=== PATIENT | female | born 1930 | race Caucasian/White ===

== ENCOUNTER 2017-04-17 13:02 | Inpatient (IN) | payer MEDICARE ==
[~2017-04-17] VITALS: Ht 152.4 cm; Wt 59.1 kg
[~2017-04-17 13:02] MED LIST: ADVAIR HFA 230/1 AER IH; AMLODIPINE5 MG PO; ATOXIMETIN-B1 CAP PO; CARDIZEM CD180 MG PO; CIPRO250 MG PO; COLACE100 MG PO; COUMADIN2 MG PO; DILTIAZEM HCL30 MG PO; Duoneb 3ML 3 MG/3 ML INH; K-TAB10 MEQ PO; LASIX20 MG PO; LISINOPRIL10 MG PO; NATURE'S BLEND400 I1 PO; NIACIN1 TAB PO; OXYCODONE5 MG PO; PEPCID20 MG PO; PERCOCET 325 MG1 TA2 PO; POTASSIUM1 PDS PO; VITAMIN D3400 IU PO; ZOLPIDEM TARTRAT5 MG PO
[2017-04-17 13:25] VITALS: BP 128/82
[2017-04-17] MEDS ORDERED: DILTIAZEM HCL180 MG PO (13:26)
[2017-04-17] MEDS ORDERED: LEVOTHYROXIN0.025 M1 PO (13:26)
[2017-04-17] MEDS ORDERED: DICLOFENAC SOD75 MG PO (13:27)
[2017-04-17 14:09] LABS: BASO # 0.1 10*3/uL (0.0-0.1); BASO % 0.9 % (0.0-1.0); EOS # 0.6 10*3/uL (0.0-0.4); EOS % 8.4 % (1.0-4.0); HEMOGLOBIN 11.5 g/dl (12.0-16.0); LYMPH # 2.1 10*3/uL (1.3-4.4); LYMPH % 27.8 % (27.0-41.0); MEAN CELL VOLUME 90.7 fl (81.0-99.0); MEAN CORPUSCULAR HGB CONC 31.9 g/dl (33.0-37.0); MEAN PLATELET VOLUME 9.5 fl (9.6-12.3); MONO # 0.8 10*3/uL (0.1-1.0); MONO % 9.8 % (3.0-9.0); NEUT % 52.7 % (47.0-73.0); PLATELET COUNT AUTOMATED 368 10*3/uL (130-400); RED BLOOD COUNT 3.97 10*6/uL (4.10-5.10); RED CELL DISTRI WIDTH 13.1 % (0-14.5); WHITE BLOOD COUNT 7.7 10*3/uL (4.8-10.8)
[2017-04-17 14:17] LABS: INTERNATIONAL NORM RATIO 0.9 (2.0-3.5); PROTHROMBIN TIME 9.8 SECONDS (9.0-12.4)
[2017-04-17 14:24] LABS: ALBUMIN 3.3 gm/dl (3.1-4.5); ALKALINE PHOSPHATASE 97 U/L (45-117); BILIRUBIN, TOTAL 0.5 mg/dl (0.2-1.0); BUN 21 mg/dl (7-24); CARBON DIOXIDE 27 mmol/L (21-32); CHLORIDE 103 mmol/L (98-107); CPK 23 U/L (26-192); EST GLOM FILT AFRICAN AMERICAN 47 ml/min; GLUCOSE 93 mg/dL (65-99); MAGNESIUM 2.9 mg/dL (1.5-2.1); POTASSIUM 4.5 mmol/L (3.5-5.1); SGOT/AST 16 IU/L (3-35); SGPT/ALT 13 U/L (12-78); SODIUM 138 mmol/L (136-145); TOTAL PROTEIN 7.6 gm/dL (6.4-8.2)
[2017-04-17 14:26] LABS: CKMB < 0.5 ng/ml (0.5-3.6); TROPONIN I < 0.015 ng/ml (<0.045)
[2017-04-17 14:27] LABS: C-REACTIVE PROTEIN 2.64 MG/DL (0-0.3)
[2017-04-17 14:32] VITALS: BP 124/84
[2017-04-17 15:23] VITALS: BP 120/82
[2017-04-17 16:12] VITALS: BP 152/48
[2017-04-17 20:00] VITALS: BP 123/58
[2017-04-18] VITALS: BP 120/62
[2017-04-18 04:00] VITALS: BP 124/68
[2017-04-18 08:00] VITALS: BP 146/76
[2017-04-18 12:00] VITALS: BP 124/68
[2017-04-18 16:00] VITALS: BP 111/67
[2017-04-18 20:00] VITALS: BP 107/75
[2017-04-19] VITALS: BP 130/79
[2017-04-19 08:00] VITALS: BP 138/64
[2017-04-19 12:00] VITALS: BP 100/62
[2017-04-19 16:00] VITALS: BP 98/71
[2017-04-19 20:00] VITALS: BP 102/51
[2017-04-20] VITALS: BP 138/78
[2017-04-20 06:03] LABS: POTASSIUM 4.4 mmol/L (3.5-5.1)
[2017-04-20 06:12] LABS: BASO % 0.1 % (0.0-1.0); HEMATOCRIT 31.8 % (37.0-47.0); HEMOGLOBIN 10.2 g/dl (12.0-16.0); IG # 0.1 10*3/uL (0.0-0.1); LYMPH # 1.5 10*3/uL (1.3-4.4); LYMPH % 11.7 % (27.0-41.0); MEAN CELL VOLUME 89.8 fl (81.0-99.0); MEAN CORPUSCULAR HGB 28.8 pg (27.0-31.0); MEAN CORPUSCULAR HGB CONC 32.1 g/dl (33.0-37.0); MONO # 0.5 10*3/uL (0.1-1.0); MONO % 4.3 % (3.0-9.0); NEUT # 10.4 10*3/uL (2.3-7.9); NEUT % 83.3 % (47.0-73.0); PLATELET COUNT AUTOMATED 343 10*3/uL (130-400); RED BLOOD COUNT 3.54 10*6/uL (4.10-5.10); RED CELL DISTRI WIDTH 13.2 % (0-14.5); WHITE BLOOD COUNT 12.5 10*3/uL (4.8-10.8)
[2017-04-20] MEDS ORDERED: DOXYCYCLINE100 M3 PO (06:55)
[2017-04-20] MEDS ORDERED: LIDOVEX60 GM T (06:55)
[2017-04-20] MEDS ORDERED: PREDNISONE5 MG PO (06:56)
[2017-04-20 08:00] VITALS: BP 136/74
== END 2017-04-20 10:15 | disposition home or self-care (01) | DRG 195 ==
LOC: ED 13:02 → EDHOLD 15:10 → 4E 15:18
PROVIDERS: Emergency Medicine; Internal Medicine
DX: J18.9 Pneumonia, unspecified organism (principal); R07.81 Pleurodynia; Z88.0 Allergy status to penicillin

== ENCOUNTER 2017-06-20 11:45 | Inpatient (IN) | payer MEDICARE, OTHER ==
[~2017-06-20] VITALS: Ht 149.8 cm; Wt 53.2 kg
--- NOTE | ~2017-06-20 | PR ---
[place], [place] [id number] #: [id number] ROOM: 532 DOCTOR: RAJESH TURNER MD BIRTHDATE: [birth year] DOS: SUBJECTIVE: The patient states that she feels better. She is not having any cough or shortness of breath. Oxygen saturation has improved after the antibiotics were started. OBJECTIVE: VITAL SIGNS: Graphic trend shows pressure 110/81, pulse of 90, respirations 20, temperature 98.2. LUNGS: Diminished breath sounds. No wheezes, rales or rhonchi heard this morning. HEART: Regular. ABDOMEN: Obese, soft. EXTREMITIES: Without any edema. ASSESSMENT AND PLAN: 1. Abdominal pain with weight loss and iron deficiency anemia. Awaiting endoscopy, colonoscopy this morning. 2. Wedge fractures of multiple lumbar vertebrae with chronic pain controlled with oxycodone. 3. Postmenopausal osteoporosis, add Fosamax. 4. Acute hypoxic respiratory failure with CT of the chest showing emphysematous changes as well as right upper lobe and basilar opacity suggesting early pneumonia. The patient was placed in antibiotics. We will also add DuoNeb. RAJESH TURNER MD CM:PNTRANS [id number] RAJESH TURNER MD 06/23/17 0018 interface
--- NOTE | ~2017-06-20 | PR ---
[place], [place] PROGRESS NOTE NAME: MARIE DICK [facility] #: [id number] UNIT #: [id number] ROOM: 532 DOCTOR: RAJESH TURNER MD BIRTHDATE: [birth year] DOS: SUBJECTIVE: The patient states that she is starting to feel a little better, does not have any new complaints. OBJECTIVE: VITAL SIGNS: Blood pressure is 120/57, pulse of 82, respirations 18, temperature 98.4. LUNGS: Clear. HEART: Regular. ABDOMEN: Obese, soft, nontender. EXTREMITIES: Without any edema. Status post endoscopy. ASSESSMENT AND PLAN: 1. Large duodenal ulcer noticed on endoscopy yesterday. The patient is on proton pump inhibitors and Carafate. 2. Iron-deficiency anemia, on supplements. 3. Wedge fractures, multiple lumbar vertebrae with postmenopausal osteoporosis. Medications have been started. 4. Hypoxic respiratory failure, acute, with chronic obstructive pulmonary disease and pneumonia, on IV antibiotics. The WBC count is normal, hemoglobin is 6.9. We will transfuse and start her on parenteral iron supplements in addition to the p.o. RAJESH TURNER MD CM:PNTRANS 0746 RAJESH TURNER MD 06/24/1741 interface
--- NOTE | ~2017-06-20 | CON ---
[place], [place] REPORT OF CONSULTATION NAME: MARIE DICK UNIT #: [id number] ROOM: 532 DOCTOR: NEPTALI LILLY MD BIRTHDATE: [birth year] DOS: HISTORY OF PRESENT ILLNESS: An 87-year-old patient who has presented with abdominal pain, was found to have a giant duodenal ulcer and severe diverticulosis. This is endoscopic findings. The patient had to be receiving 2 units of packed cells. H and H improved to 10 and 34 today. Basic metabolic panel has been unremarkable. PAST MEDICAL HISTORY: Atrial fibrillation, hemorrhoid, diverticulosis, osteoporosis. PAST SURGICAL HISTORY: Left hip. SOCIAL HISTORY: Nonsmoker, nonalcohol consumer. REVIEW OF SYSTEMS: No hematemesis. No hematochezia. Actually, she has had multiple bowel movements today, yellow in color. No shortness of breath. No chest pain. However, still continues subxiphoid distress. PHYSICAL EXAMINATION: VITAL SIGNS: Stable. HEENT: Benign. NECK: Supple. No thyromegaly. CHEST: Symmetric anatomy, equal expansion. HEART: Normal sinus rhythm. No gallop. No murmur. ABDOMEN: Soft. No hepato-organomegaly. Bowel sounds present. EXTREMITIES: No cyanosis. No pedal edema. NEUROLOGIC: Alert and oriented. IMPRESSION AND PLAN: Severe diverticulosis, giant duodenal ulcer. We are going to continue with double dose Protonix 40 mg IV b.i.d. We are going to continue with sucralfate therapy, slurry 2 grams q. 6 hours. She is demanding solid food and she wants to pick and choose from her diet. However, we will remain aggressive double dose therapy for next month and after that we are going to then reduce to 1 Protonix 40 mg daily and Carafate q.i.d. The cause of her problem associated with diclofenac and we are going to avoid above. OTHER ADJUNCTIVE DIAGNOSES: As dictated. [place], [place] REPORT OF CONSULTATION NAME: MRAIE DICK UNIT #: [id number] ROOM: 532 DOCTOR: NEPTALI LILLY MD BIRTHDATE: [birth year] NEPTALI LILLY MD CM:CONSTR:REPORT OF CONSULTATION 1605 06/25/17 2303 interface
--- NOTE | ~2017-06-20 | PR ---
[place], [place] PROGRESS NOTE NAME: MARIE DICK [facility] #: [id number] UNIT #: [id number] ROOM: 532 DOCTOR: RAJESH TURNER MD BIRTHDATE: [birth year] DOS: SUBJECTIVE: The patient states that she had quite a lot of diarrhea yesterday, but she does not have any abdominal pain. OBJECTIVE: VITAL SIGNS: Blood pressure is 106/56, pulse of 90, respirations 18, temperature 98.3. LUNGS: Clear. HEART: Regular. ABDOMEN: Soft, some minimal tenderness in the epigastric region. EXTREMITIES: Without any edema. LABORATORY DATA: WBC count is 6.6, hemoglobin 10.7, hematocrit 33.5, platelets 393. BMP: Glucose 112, BUN 2, creatinine 0.77. Sodium 141, potassium 2.7, chloride 105, bicarbonate 25. ASSESSMENT AND PLAN: 1. Large duodenal ulcer without any active bleed. We will start her on a regular diet today, but advised the patient not take anything fried or spicy, stick to a bland diet. 2. Precipitous drop in hematocrit. The patient was transfused iron supplements IV and p.o. has already been ordered for underlying iron deficiency anemia. 3. Pneumonia, possible Gram-negative on IV antibiotics. 4. Adult failure to thrive. Get PT/OT to see her and hopefully discharge by Sunday. 5. Postmenopausal osteoporosis with multiple lumbar wedge fracture, continue pain management. RAJESH TURNER MD CM:PNTRANS 0 [phone] RAJESH TURNER MD 06/25/17 0229 interface
--- NOTE | ~2017-06-20 | O ---
[place], [place] OPERATIVE NOTE NAME: MARIE DICK UNIT #: [id number] ROOM: 532 DOCTOR: MAXX ROSANEPTALI BIRTHDATE: [birth year] DOS: GASTROENDOSCOPIC REPORT. The patient is an 87-year-old who has presented with nausea, vomiting and not feeling well. The patient had a panel of blood work done. She was found to have microcytic indices of anemia with H and H of 8 and 24. Basic metabolic panel was normal. CT scan of the abdomen and pelvis did not show any acute inflammatory process, uncomplicated diverticulosis has been noticed, 3.4 cm abdominal aortic aneurysm was noticed. Hepatic panel was within normal limits. Lipase 100 within normal limits. PAST MEDICAL HISTORY: Associated with osteoporosis, abdominal pain, atrial fibrillation , hip fracture, hypertension. Also associated with back pain, hypothyroidism, spinal compression. PAST SURGICAL HISTORY: Hip fracture. SOCIAL HISTORY: Nonsmoker, nonalcohol consumer. FAMILY HISTORY: Noncontributory. ALLERGIES: PENICILLIN. PROCEDURE: Today's procedure part of investigation is panendoscopy plus biopsy and colonoscopy. PREMEDICATION: Versed and Diprivan. SCOPE: Olympus forward-viewing gastroscope Q10 video. REPORT: After putting the patient in the left lateral position and after application of lubricant to the scope, the scope was introduced. Thereafter, under direct visualization, I advanced through the length of esophagus without difficulty. Gastric pouch was entered. Gastritis seen. A giant duodenal ulcer was identified. The base of which is scarred and not actively bleeding. Distant margin of the ulcer was biopsied. Antrum was biopsied. The patient extubated, tolerated procedure well. IMPRESSION: Giant duodenal ulcer. PLAN AND DISCUSSION: We are going to treat the patient with Protonix IV 40 mg b.i.d. We are going to start her on sucralfate, Carafate 2 grams 2 hours before meals and at bedtime intermittently. We are going to give her Gaviscon 15 mL every 3 hours, alternating with Carafate and full liquid diet and clinical reassessment. Meanwhile, we are going to proceed with colonoscopy to rule out occult malignancy of colon. [place], [place] OPERATIVE NOTE NAME: MARIE DICK UNIT #: [id number] ROOM: [facility] DOCTOR: NEPTALI LILLY MD BIRTHDATE: [birth year] NEPTALI LILLY MD CM:OPRECORD:OPERATIVE NOTE [phone] NEPTALI LILLY MD 06/22/17 1443 interface
--- NOTE | ~2017-06-20 | PR ---
[place], [place] PROGRESS NOTE NAME: MARIE DICK [facility] #: [id number] UNIT #: [id number] ROOM: 532 DOCTOR: RAJESH TURNER MD BIRTHDATE: [birth year] DOS: 06/25/2017 SUBJECTIVE: The patient states that she is tired, does not have any new complaints. OBJECTIVE: VITAL SIGNS: Blood pressure is 137/69, pulse of 77, respirations 20, temperature 98.7. LUNGS: Clear. HEART: Regular. ABDOMEN: Obese, soft, nontender. EXTREMITIES: Without any edema. LABORATORY DATA: White cell count is normal, hemoglobin 10.3, platelets 367. BMP: Glucose 87, BUN and creatinine normal. Potassium is up to 3.2. ASSESSMENT AND PLAN: 1. Hypokalemia. Supplementation will be ordered again. 2. Precipitous drop in hematocrit with iron deficiency anemia, which is corrected. 3. Weight loss with a large duodenal ulcer. The patient has been started on a diet and is tolerating and has not had any active bleed. 4. Pneumonia, possible Gram negative. Chest x-ray will be ordered to see if clearing and plan is to discharge in a.m. RAJESH TURNER MD CM:PNTRANS 1 0923 RAJESH TURNER MD 06/26/17 0515 interface
--- NOTE | ~2017-06-20 | PR ---
[place], [place] PROGRESS NOTE NAME: MARIE DICK [facility] #: [id number] UNIT #: [id number] ROOM: 532 DOCTOR: RAJESH TURNER MD BIRTHDATE: [birth year] DOS: 06/26/2017 SUBJECTIVE: The patient is doing better, does not have any complaints. Denies any chest pains, palpitations or shortness of breath. She thinks she may have slight burning when she urinates. She has had 3 bowel movements yesterday. OBJECTIVE: VITAL SIGNS: Graphic trend this morning shows a pressure of 136/72, pulse is 76, respirations 20, temperature 98.6. LUNGS: Clear. HEART: Regular. ABDOMEN: Obese, soft, nontender. EXTREMITIES: Without any edema. LABORATORY DATA: No labs available this morning. , it was negative. Chest x-ray shows atelectasis with basilar process for which she is already on antibiotics. Incidentally to be noted is that knee x-ray on admission was negative. The pneumonia was actually seen on a CT of the chest. ASSESSMENT AND PLAN: 1. Pneumonia, right upper lobe as well as basilar, possible gram-negative, improving. 2. Chronic obstructive pulmonary disease with acute hypoxic respiratory failure, hypoxemia is corrected. The patient does not have any exacerbations. 3. Precipitous drop in hematocrit, corrected. 4. Benign hypertension, controlled. 5. Duodenal ulcer, on medications. Plan is to discharge her to home today to follow up as an outpatient. RAJESH TURNER MD CM:PNTRANS 4 8 RAJESH TURNER MD 06/26/17918 interface
--- NOTE | ~2017-06-20 | DS ---
[place], [place] DISCHARGE SUMMARY NAME: MARIE DICK [facility] #: [id number] UNIT #: [id number] ROOM: 532 DOCTOR: RAJESH TURNER MD BIRTHDATE: [birth year] DOS: 06/26/2017 DIAGNOSES: 1. Large duodenal ulcer. 2. Precipitous drop in hematocrit. 3. Bilateral pneumonia, possible gram negative. 4. Acute hypoxic respiratory failure. 5. Benign hypertension. 6. Postmenopausal osteoporosis. 7. Chronic low back pain with multiple wedge fractures of the lumbar vertebrae. DISCHARGE MEDICATIONS: Iron 150 daily, oxycodone 5 three times a day p.r.n., Cipro 500 mg twice a day for 7 days, Protonix 40 daily, Carafate 1 gram q.i.d., Zofran 8 mg twice a day, levothyroxine 0.025 mg daily, diltiazem 180 daily. This patient avoids nonsteroidals. HOSPITAL COURSE: This patient is 87 years old. She comes in with complaints of eating poorly, significant weight loss, abdominal pain, nausea and emesis. Please refer to H and P for details. After admission, the patient was placed on IV fluids, IV Protonix. Dr. Romero was consulted for an endoscopy. The patient was noted to have hypoxemia, oxygen saturation in the low 80s. CT of the chest showed bilateral pneumonia. IV antibiotics were added along with breathing treatments which was later changed to incentive spirometry. The patient underwent the endoscopy and was noted to have a large duodenal ulcer. Her count later dropped to 6.5 and required 2 units of blood transfusion. She was also noted to be iron deficient and was started on both paracentral and p.o. iron supplements. The patient's count has come up and it stabilized around 10.4. The patient is not having any new complaints, back pain is controlled with oxycodone. She is advised not to take any nonsteroidals. I did start her on Fosamax again for osteoporosis, but knowing that she has a large duodenal ulcer, I would avoid any medicines which can cause further irritation, so Fosamax has been stopped for right now. I will start it at a later date once the ulcer completely heals. The patient will have visiting nurses, PT, OT at home. DISCHARGE MEDICATIONS: As above. DIET: As tolerated. [place], [place] DISCHARGE SUMMARY NAME: MARIE DICK UNIT #: [id number] ROOM: [facility] DOCTOR: RAJESH TURNER MD BIRTHDATE: [birth year] RAJESH TURNER MD CM:CAMILO 0818 [id number] RAJESH TURNER MD 06/26/17 1653 interface
--- NOTE | ~2017-06-20 | WRIGHTHP ---
[place], [place] PATIENT HISTORY AND PHYSICAL EXAM NAME: MARIE DICK [facility] #: [id number] UNIT #: [id number] ROOM: 532 DOCTOR: RAJESH TURNER MD BIRTHDATE: [birth year] DOS: 06/20/2017 HISTORY OF PRESENT ILLNESS: The patient is 87 years old who was admitted with complaints of difficulty with weight loss and nausea and emesis. The patient has had a history of vertebral fractures, was on pain medications at home, but continued to worsen, was seen by ____ as an outpatient, was placed on Cymbalta for chronic pain. This as per the patient and the family made her increasingly nauseous. She has been throwing up for the last several days and so quit taking her Cymbalta is impart. She has also lost about 30 pounds in the last 1 month. Denies having any chest pains or palpitations. Complains of a bloating feeling in abdomen and continued abdominal discomfort and does not have any diarrhea, any fever or chills. Does not have any chest pains or palpitations. PAST MEDICAL HISTORY: Significant for: 1. Multiple compression fractures of the lumbar spine. 2. Postmenopausal osteoporosis. 3. History of diverticular bleed. 4. Benign hypertension. 5. History of lone atrial fibrillation. 6. History of hip fracture with repair. MEDICATIONS: She is on Cardizem, diclofenac, duloxetine and levothyroxine. SOCIAL HISTORY: Nonsmoker, does not use any alcohol. PHYSICAL EXAMINATION: GENERAL: She is awake and alert and oriented. VITAL SIGNS: Graphic trend shows pressure 131/60, pulse of 79, respirations 18 and temperature 98.8. LUNGS: Diminished breath sounds. No wheezes, rales or rhonchi heard this morning. HEART: Regular. ABDOMEN: Obese, soft, some diffuse tenderness all across the abdomen. EXTREMITIES: Without any edema. LABORATORY DATA: Shows a normal white blood cell count, but hemoglobin is 8.4, hematocrit 28.3, platelet 501. BMP: Glucose 102. Electrolytes were normal. ASSESSMENT AND PLAN: 1. The patient with significant weight loss, nausea and emesis, most likely has acute gastritis. The patient will be placed on IV Protonix, IV fluids. Consultation with Dr. Romero has been obtained. CT of the abdomen and pelvis was ordered. 2. Benign hypertension, controlled. 3. Chronic back pain, not any better. We will discontinue the Cymbalta, which was causing a lot of nausea and emesis and also place on oxycodone for pain control. 4. Hypothyroidism. Continue medications. 5. Hypoxic respiratory failure, acute. This morning the patient's oxygen [place], [place] PATIENT HISTORY AND PHYSICAL EXAM NAME: MARIE DICK UNIT #: [id number] ROOM: [facility] DOCTOR: RAJESH TURNER MD BIRTHDATE: [birth year] saturation is down to 86 on room air. We will restart oxygen supplementation, order chest CT scan. RAJESH TURNER MD CM:HISPHYS:PATIENT HISTORY AND PHYSICAL EXAMINATION 0 RAJESH TURNER MD 06/21/1741 interface
--- NOTE | ~2017-06-20 | O ---
[place], [place] OPERATIVE NOTE [id number] UNIT #: [id number] ROOM: 532 DOCTOR: NEPTALI LILLY MD BIRTHDATE: [birth year] DOS: GASTROENDOSCOPIC REPORT. The patient has presented with chief complaint of anemia, drop in H and H, undergoing investigation. PROCEDURE: Today's procedure part of investigation is colonoscopy. PREMEDICATION: Versed and Diprivan. SCOPE: Olympus folding colonoscope 10L video. REPORT: After putting the patient in the left lateral position and after application of lubricant to the scope, the scope was introduced. Thereafter, under direct visualization, I advanced through the length of colon without difficulty. Severe diverticulosis of sigmoid colon was identified, photographed. Base of the cecum explored, appendiceal orifice identified, and ileocecal valve was defined. The patient was gradually extubated, tolerated procedure well. IMPRESSION: Severe diverticulosis of sigmoid colon and descending colon. PLAN AND DISCUSSION: Full liquid diet for the concerns of giant duodenal ulcer, workup in progress. Follow up H and H tomorrow, next day and should there will be a further drop in H and H, we are going to consider transfusion of packed cell, 1 unit and reassessment. NEPTALI LILLY MD CM:OPRECORD:OPERATIVE NOTE [phone] NEPTALI LILLY MD 06/22/17 1443 interface
[~2017-06-20 11:45] MED LIST changes: +DICLOFENAC SOD75 MG PO; +DILTIAZEM HCL180 MG PO; +DOXYCYCLINE100 M3 PO; +LEVOTHYROXIN0.025 M1 PO; +LIDOVEX60 GM T; +PREDNISONE5 MG PO
[2017-06-20 12:00] VITALS: BP 125/63
--- NOTE | 2017-06-20 12:05 | NUR ---
Time: 1204 A 87 year old FEMALE admitted to under services of RAJESH MARSH MD. Pt. arrived via bed from [place]. Chief complaint: NAUSEA, VOMITING, ABD PAIN. SHANTELL RODRIGEZ
[2017-06-20] MEDS ORDERED: CYMBALTA20 M1 PO (13:05)
[2017-06-20 15:06] LABS: BASO # 0.1 10*3/uL (0.0-0.1); BASO % 0.6 % (0.0-1.0); EOS # 0.1 10*3/uL (0.0-0.4); EOS % 0.9 % (1.0-4.0); HEMATOCRIT 28.3 % (37.0-47.0); HEMOGLOBIN 8.4 g/dl (12.0-16.0); LYMPH # 2.1 10*3/uL (1.3-4.4); LYMPH % 25.8 % (27.0-41.0); MEAN CELL VOLUME 82.7 fl (81.0-99.0); MEAN CORPUSCULAR HGB 24.6 pg (27.0-31.0); MEAN CORPUSCULAR HGB CONC 29.7 g/dl (33.0-37.0); MEAN PLATELET VOLUME 8.8 fl (9.6-12.3); MONO # 0.6 10*3/uL (0.1-1.0); MONO % 7.7 % (3.0-9.0); NEUT # 5.1 10*3/uL (2.3-7.9); NEUT % 64.5 % (47.0-73.0); PLATELET COUNT AUTOMATED 501 10*3/uL (130-400); RED BLOOD COUNT 3.42 10*6/uL (4.10-5.10); RED CELL DISTRI WIDTH 16.1 % (0-14.5)
[2017-06-20 15:14] LABS: BUN 13 mg/dl (7-24); CHLORIDE 100 mmol/L (98-107); CREATININE 0.84 mg/dL (0.55-1.02); POTASSIUM 3.6 mmol/L (3.5-5.1); SODIUM 137 mmol/L (136-145)
[2017-06-20 16:00] VITALS: BP 136/71
[2017-06-20 20:21] VITALS: BP 141/64
--- NOTE | 2017-06-20 20:36 | NUR ---
PRN ROXICODONE GIVEN FOR C/O HEADACHE RATED 6/10. WILL MONITOR
--- NOTE | 2017-06-20 21:15 | NUR ---
ROXICODONE EFFECTIVE, PATIENT ASLEEP WITH RESPIRATIONS >12
[2017-06-21] VITALS: BP 131/60
--- NOTE | 2017-06-21 07:30 | NUR ---
ASSUMED CARE OF PT AT THIS TIME, PT RESTING IN BED WITH BIPAP ON, WILL MONITOR
[2017-06-21 08:00] VITALS: BP 117/48
--- NOTE | 2017-06-21 08:00 | NUR ---
CALL PLACED TO FOR CONSULT, DR. LILLY STATED HE WAS IN THE MIDDLE OF A PROCEDURE AND WOULD CALL BACK
--- NOTE | 2017-06-21 08:54 | NUR ---
Sqe in to talk to patient. Patient states lives at [address] with HER DAUGHTER. There are 0 steps in the home. Physician: DR TURNER Pharmacy: [facility] Home health services: NONE Patient's level of ADLs: MINIMAL ASSIST Patient has working utilities: YES DME: HOSP BED/WC/[facility] Follow-up physician's appointment after d/c: PREFERS TO MAKE HER OAN APPT Does patient want to access PORTAL?: Discharge plan HOME. RADHA BERRY
[2017-06-21 09:07] LABS: ALBUMIN 2.6 gm/dl (3.1-4.5); BILIRUBIN, DIRECT 0.1 mg/dL (0.0-0.2); TOTAL PROTEIN 6.6 gm/dL (6.4-8.2)
[2017-06-21 10:04] LABS: FERRITIN 25.5 ng/mL (10.0-291.0)
--- NOTE | 2017-06-21 15:34 | NUR ---
PT C/O H/A, RATES PAIN 8/10, REQUESTED PRN PAIN MEDICATION, ADMINSITERED ROXICET PO PRN PER ORDERS, WILL MONITOR EFFECTS
[2017-06-21 16:00] VITALS: BP 120/54
--- NOTE | 2017-06-21 16:56 | NUR ---
PT NO FURTHER REPORTS C/O H/A, ROXICODNE EFFECTIVE AT THIS TIME.
[2017-06-21 20:00] VITALS: BP 134/56
[2017-06-22] VITALS (8 sets, daily range): BP systolic 110–153; BP diastolic 53–81
--- NOTE | 2017-06-22 04:38 | NUR ---
[facility] REFER TO PAPER MAR AND WRITTEN PROGRESS NOTES.
--- NOTE | 2017-06-22 22:20 | NUR ---
C/O BACK PAIN RATING A 5, MEDICATED WITH ROXICODONE PER PRN ORDER. CALL LIGHT WITHIN REACH. WILL MONITOR FOR EFFECTIVENESS
--- NOTE | 2017-06-22 23:00 | NUR ---
RESTING IN BED WITH NO DISTRESS NOTED. RESPIRATIONS EASY. LUNGS DIMINISHED WITH I&E WHEEZES. PULSE OX 90% RA, O2 PRESENT AT BEDSIDE BUT PATIENT REFUSING TO USE D/T "I DON'T WANT TO BE DEPENDENT ON IT". TRACE BLE EDEMA NOTED. IV FLUIDS INFUSING PER ORDER. CALL LIGHT WITHIN REACH.
[2017-06-23] VITALS (19 sets, daily range): BP systolic 119–142; BP diastolic 50–80
--- NOTE | 2017-06-23 | NUR ---
MEDS APPEAR EFFECTIVE. SLEEPING. RESPIRATIONS EASY. VSS. CALL LIGHT WITHIN REACH
--- NOTE | 2017-06-23 06:00 | NUR ---
SLEPT THROUGHOUT NIGHT WITH NO DISTRESS NOTED. IV FLUIDS MAINTAINED. CALL LIGHT WITHIN REACH
[2017-06-23 07:01] LABS: BASO % 0.7 % (0.0-1.0); EOS # 0.4 10*3/uL (0.0-0.4); EOS % 6.3 % (1.0-4.0); HEMATOCRIT 24.1 % (37.0-47.0); HEMOGLOBIN 6.9 g/dl (12.0-16.0); LYMPH # 1.7 10*3/uL (1.3-4.4); LYMPH % 30.9 % (27.0-41.0); MEAN CORPUSCULAR HGB CONC 28.6 g/dl (33.0-37.0); MEAN PLATELET VOLUME 8.9 fl (9.6-12.3); MONO # 0.6 10*3/uL (0.1-1.0); MONO % 10.3 % (3.0-9.0); NEUT # 2.8 10*3/uL (2.3-7.9); NEUT % 51.4 % (47.0-73.0); PLATELET COUNT AUTOMATED 418 10*3/uL (130-400); RED BLOOD COUNT 2.87 10*6/uL (4.10-5.10); RED CELL DISTRI WIDTH 15.7 % (0-14.5); WHITE BLOOD COUNT 5.5 10*3/uL (4.8-10.8)
--- NOTE | 2017-06-23 09:38 | NUR ---
PT RESTING IN BED, NO DISTRESS NOTED, DAUGHTER AT BEDSIDE. SHAYNE MONITOR
--- NOTE | 2017-06-23 11:06 | NUR ---
IV started right hand with #22 angiocath after 1 attempts. The IV site was prepped with Chloraprep. Heparin lock attached. Sterile dressing applied. Patient tolerated precedure well. Procedure performed according to [facility] policy & procedure. BONILLA ARANA
--- NOTE | 2017-06-23 16:02 | NUR ---
PT REQUESTED AND GIVEN OXY IR FOR C/O BACK PAIN. PT RATES PAIN 6/10. FAMILY AT BEDSIDE
--- NOTE | 2017-06-23 17:16 | NUR ---
PT STATES THAT OXY IR HELPED RELIEVE SOME BACK PAIN. WILL MONITOR
[2017-06-24] VITALS: BP 106/56
[2017-06-24 06:39] LABS: BASO # 0.1 10*3/uL (0.0-0.1); BASO % 0.9 % (0.0-1.0); EOS # 0.5 10*3/uL (0.0-0.4); EOS % 8.1 % (1.0-4.0); LYMPH % 30.4 % (27.0-41.0); MEAN CELL VOLUME 82.3 fl (81.0-99.0); MEAN CORPUSCULAR HGB 26.3 pg (27.0-31.0); MEAN CORPUSCULAR HGB CONC 31.9 g/dl (33.0-37.0); MEAN PLATELET VOLUME 8.9 fl (9.6-12.3); MONO # 0.7 10*3/uL (0.1-1.0); MONO % 10.7 % (3.0-9.0); NEUT # 3.3 10*3/uL (2.3-7.9); NEUT % 49.4 % (47.0-73.0); PLATELET COUNT AUTOMATED 393 10*3/uL (130-400); RED BLOOD COUNT 4.07 10*6/uL (4.10-5.10); RED CELL DISTRI WIDTH 15.6 % (0-14.5); WHITE BLOOD COUNT 6.6 10*3/uL (4.8-10.8)
[2017-06-24 06:42] LABS: HEMATOCRIT 33.5 % (37.0-47.0); HEMOGLOBIN 10.7 g/dl (12.0-16.0)
[2017-06-24 07:02] LABS: BUN 2 mg/dl (7-24); CHLORIDE 105 mmol/L (98-107); CREATININE 0.77 mg/dL (0.55-1.02); POTASSIUM 2.7 mmol/L (3.5-5.1); SODIUM 141 mmol/L (136-145)
[2017-06-24 08:00] VITALS: BP 148/84
--- NOTE | 2017-06-24 08:40 | NUR ---
PT REQUESTD AND GIVEN OXY IR FOR C/O BACK PAIN . PT RATES PAIN 03/31. WILL MONITOR. CALL LIGHT WITHIN REACH
--- NOTE | 2017-06-24 10:00 | NUR ---
pt states that oxy ir helped relieved some of her back pain. will monitor
--- NOTE | 2017-06-24 14:30 | NUR ---
pt medicated with zofran for c/o nausea. will monitor
[2017-06-24 16:00] VITALS: BP 121/54
--- NOTE | 2017-06-24 20:25 | NUR ---
Medicated with oxy-ir per prn order for c/o of back pain.
--- NOTE | 2017-06-24 21:30 | NUR ---
Pt is currently resting comfortably. Medication effective.
[2017-06-25] VITALS: BP 137/69
[2017-06-25 06:34] LABS: BASO # 0.1 10*3/uL (0.0-0.1); BASO % 1.1 % (0.0-1.0); EOS # 0.7 10*3/uL (0.0-0.4); EOS % 10.6 % (1.0-4.0); HEMATOCRIT 34.2 % (37.0-47.0); HEMOGLOBIN 10.3 g/dl (12.0-16.0); LYMPH # 2.2 10*3/uL (1.3-4.4); LYMPH % 34.9 % (27.0-41.0); MEAN CORPUSCULAR HGB 25.3 pg (27.0-31.0); MEAN CORPUSCULAR HGB CONC 30.1 g/dl (33.0-37.0); MEAN PLATELET VOLUME 8.9 fl (9.6-12.3); MONO # 0.9 10*3/uL (0.1-1.0); MONO % 14.4 % (3.0-9.0); NEUT # 2.5 10*3/uL (2.3-7.9); NEUT % 38.4 % (47.0-73.0); PLATELET COUNT AUTOMATED 367 10*3/uL (130-400); RED BLOOD COUNT 4.07 10*6/uL (4.10-5.10); RED CELL DISTRI WIDTH 16.1 % (0-14.5); WHITE BLOOD COUNT 6.4 10*3/uL (4.8-10.8)
--- NOTE | 2017-06-25 06:45 | NUR ---
PT. IV PULLED OUT. SITE ASYMP IN R ARM. IV started left forearm with #24 angiocath after 2nd attempts. The IV site was prepped with Chloraprep. Heparin lock attached. IV solution 0.9NS WITH 20 MEQ KCL infusing at 60 cc/hr. Sterile dressing applied. Patient tolerated precedure well. Procedure performed according to [facility] policy & procedure. LEFT WRIST HEPLOCK SITE DISCONTINUED SITE SLIGHTLY EDEMATOUS. STERILE DRESSING TO SITE. ANABEL VALENZUELA .
[2017-06-25 06:58] LABS: BUN 3 mg/dl (7-24); CHLORIDE 107 mmol/L (98-107); CREATININE 0.77 mg/dL (0.55-1.02); POTASSIUM 3.2 mmol/L (3.5-5.1); SODIUM 141 mmol/L (136-145)
--- NOTE | 2017-06-25 07:28 | NUR ---
PT RESTING IN BED, NO DISTRESS NOTED, NO VOICED C/O. WILL MONITOR
[2017-06-25 08:00] VITALS: BP 146/53
[2017-06-25 16:00] VITALS: BP 118/56
[2017-06-25 20:00] VITALS: BP 128/87
--- NOTE | 2017-06-25 20:15 | NUR ---
PATIENT IS RESTING QUIETLY IN BED. RESPIRATIONS EASY/REGULAR. NO SXS OF DISTRESS AT THIS TIME. C/O STOMACH PAIN AT A 6 . SHE IS PLEASANT/COOPERATIVE WITH CARE. FLUIDS MAINTAINED PER ORDER. CALL LIGHT IS IN REACH.
--- NOTE | 2017-06-25 20:19 | NUR ---
MEDICATED WITH PRN OXY IR ORDERED FOR PATIENT C/O ABDOMINAL PAIN AT A 6. WILL FOLLOW UP EFFECTIVENESS.
--- NOTE | 2017-06-25 21:20 | NUR ---
PATIENT STATES EARLIER OXY WAS EFFECTIVE IN REDUCING HER PAIN.
[2017-06-26] VITALS: BP 136/72
--- NOTE | 2017-06-26 01:26 | NUR ---
PATIENT SLEEPING. NO SXS OF DISTRESS. RESPIRATIONS EASY/REG. FLUIDS MAINTAINED ORDERED. CALL LIGHT IN REACH.
[2017-06-26 08:00] VITALS: BP 151/78
[2017-06-26] MEDS ORDERED: POLY-IRON 150150 MG PO (08:12)
[2017-06-26] MEDS ORDERED: OXYCODONE HCL5 MG PO (08:12)
[2017-06-26] MEDS ORDERED: CIPRO500 MG PO (08:12)
[2017-06-26] MEDS ORDERED: Carafate1 GM PO (08:12)
[2017-06-26] MEDS ORDERED: PROTONIX40 MG PO (08:12)
[2017-06-26] MEDS ORDERED: ZOFRAN8 M1 PO (08:12)
--- NOTE | 2017-06-26 09:28 | NUR ---
Discharge instructions reviewed with patient/family. Patient receptive and verbalizes understanding. Follow-up care arranged. Written instructions given to patient/family. PHILLIP GUTIERREZ
== END 2017-06-26 09:28 | disposition home or self-care (01) | DRG 177 ==
LOC: 5E 11:45
PROVIDERS: Internal Medicine; Internal Medicine Gastroenterology; ADMIT Internal Medicine
PROC: 0DJD8ZZ Inspection of Lower Intestinal Tract, Via Natural or Artificial Opening Endoscopic (ICD-10-PCS; principal; 2017-06-22)
PROC: 0DB68ZX Excision of Stomach, Via Natural or Artificial Opening Endoscopic, Diagnostic (ICD-10-PCS; principal; 2017-06-22)
PROC: 30233N1 Transfusion of Nonautologous Red Blood Cells into Peripheral Vein, Percutaneous Approach (ICD-10-PCS; 2017-06-23)
DX: J15.6 Pneumonia due to other Gram-negative bacteria (principal); J96.01 Acute respiratory failure with hypoxia; K92.2 Gastrointestinal hemorrhage, unspecified; K26.4 Chronic or unspecified duodenal ulcer with hemorrhage; I48.0 Paroxysmal atrial fibrillation; R63.4 Abnormal weight loss; I10 Essential (primary) hypertension; E03.9 Hypothyroidism, unspecified; D50.9 Iron deficiency anemia, unspecified; R62.7 Adult failure to thrive; D47.3 Essential (hemorrhagic) thrombocythemia; G89.29 Other chronic pain; M54.5 Low back pain; M80.00XG Age-related osteoporosis with current pathological fracture, unspecified site, subsequent encounter for fracture with delayed healing; E87.6 Hypokalemia; Z87.81 Personal history of (healed) traumatic fracture; Z79.899 Other long term (current) drug therapy; Z87.891 Personal history of nicotine dependence; Z88.0 Allergy status to penicillin; Z82.49 Family history of ischemic heart disease and other diseases of the circulatory system; Z68.23 Body mass index [BMI] 23.0-23.9, adult

== ENCOUNTER 2017-11-22 11:36 | Emergency (ER) | payer MEDICARE, OTHER ==
[~2017-11-22] VITALS: Ht 152.4 cm; Wt 48.1 kg
[~2017-11-22 11:36] MED LIST changes: +CIPRO500 MG PO; +CYMBALTA20 M1 PO; +Carafate1 GM PO; +OXYCODONE HCL5 MG PO; +POLY-IRON 150150 MG PO; +PROTONIX40 MG PO; +ZOFRAN8 M1 PO
[2017-11-22 12:06] LABS: BASO % 0.8 % (0.0-1.0); EOS # 0.1 10*3/uL (0.0-0.4); EOS % 2.3 % (1.0-4.0); HEMATOCRIT 45.6 % (37.0-47.0); LYMPH # 1.6 10*3/uL (1.3-4.4); LYMPH % 30.7 % (27.0-41.0); MEAN CELL VOLUME 90.7 fl (81.0-99.0); MEAN CORPUSCULAR HGB 29.8 pg (27.0-31.0); MEAN CORPUSCULAR HGB CONC 32.9 g/dl (33.0-37.0); MEAN PLATELET VOLUME 9.3 fl (9.6-12.3); MONO # 0.5 10*3/uL (0.1-1.0); MONO % 9.6 % (3.0-9.0); NEUT # 2.9 10*3/uL (2.3-7.9); NEUT % 55.8 % (47.0-73.0); PLATELET COUNT AUTOMATED 249 10*3/uL (130-400); RED BLOOD COUNT 5.03 10*6/uL (4.10-5.10); RED CELL DISTRI WIDTH 14.6 % (0-14.5); WHITE BLOOD COUNT 5.2 10*3/uL (4.8-10.8)
[2017-11-22 12:28] LABS: ALBUMIN 3.5 gm/dl (3.1-4.5); ALKALINE PHOSPHATASE 65 U/L (45-117); BUN 11 mg/dl (7-24); CHLORIDE 100 mmol/L (98-107); CREATININE 0.86 mg/dL (0.55-1.02); POTASSIUM 3.5 mmol/L (3.5-5.1); SGOT/AST 15 IU/L (3-35); SGPT/ALT 14 U/L (12-78); SODIUM 139 mmol/L (136-145); TOTAL PROTEIN 7.2 gm/dL (6.4-8.2)
== END 2017-11-22 15:09 | disposition home or self-care (01) ==
LOC: ED 11:36
PROVIDERS: Nurse Practitioner Family
DX: S32.058A Other fracture of fifth lumbar vertebra, initial encounter for closed fracture (principal); S22.078A Other fracture of T9-T10 vertebra, initial encounter for closed fracture; I10 Essential (primary) hypertension; E03.9 Hypothyroidism, unspecified; I48.91 Unspecified atrial fibrillation; Z87.891 Personal history of nicotine dependence; Z98.890 Other specified postprocedural states; Z79.899 Other long term (current) drug therapy; Z88.0 Allergy status to penicillin; W19.XXXA Unspecified fall, initial encounter; Y93.89 Activity, other specified; Y92.89 Other specified places as the place of occurrence of the external cause; Y99.9 Unspecified external cause status